=== PATIENT | male | born 1980 ===

== ENCOUNTER 2017-06-05 08:45 | Emergency (ER) | payer MEDICARE ==
[2017-06-05 08:54] VITALS: BMI 19.3
[2017-06-05 09:06] VITALS: BP 127/71; PULSE 79; RESP 18; TEMP 98; O2SAT 98
--- NOTE | 2017-06-05 09:09 | ED PDOC ---
Arrival/HPI - General Chief Complaint: Cough, Cold, Congestion Time Seen by Provider: 06/05/17 08:49 Historian: Patient - History of Present Illness Narrative History of Present Illness (Text): 06/05/17 09:04 A 36 year old male, whose past medical history includes HIV positive with t- cell count of 900 and undetected viral load, presents to the emergency department complaining of a cough for 2 weeks. Patient reports pain to left posterior ribs when coughing. He notes mild URI symptoms but denies any fever, chills, chest pain, shortness of breath, dyspnea on exertion or any other complaints. Patient notes his symptoms began shortly after starting his new job at [employer]. Time/Duration: Other (2 weeks) Symptom Course: Unchanged Quality: Other Context: Home Past Medical History - Provider Review Nursing Documentation Reviewed: Yes - Infectious Disease Hx of Infectious Diseases: None - Hematological/Oncological Hx AIDS: Yes - Psychiatric Hx Substance Use: No Family/Social History - Physician Review Nursing Documentation Reviewed: Yes Family/Social History: No Known Family HX Smoking Status: Heavy Smoker > 10 Cigarettes Daily Hx Alcohol Use: No Hx Substance Use: Yes Substance used: marijuana Allergies/Home Meds Allergies/Adverse Reactions: Allergies No Known Allergies Allergy (Verified 06/05/17 08:54) Review of Systems - Physician Review All systems were reviewed & negative as marked: Yes - Review of Systems Constitutional: absent: Fevers, Night Sweats Respiratory: Cough. absent: SOB Cardiovascular: absent: Chest Pain, [place] Musculoskeletal: Other (left posterior rib pain when coughing) Physical Exam Vital Signs Reviewed: Yes Vital Signs Temp Pulse Resp BP Pulse Ox 06/05/17 08:46 98 F 79 18 127/71 98 Temperature: Afebrile Blood Pressure: Normal Pulse: Regular Respiratory Rate: Normal Appearance: Positive for: Ill-Appearing, Cachectic, Other (Thin) Pain Distress: None Mental Status: Positive for: Alert and Oriented X 3 - Systems Exam Head: Present: Atraumatic, Normocephalic Pupils: Present: PERRL Extroacular Muscles: Present: EOMI Conjunctiva: Present: Normal Ears: Present: Normal, NORMAL TM, Normal Canal. No: Erythema, TM Bulging, Fluid , TM Perf Mouth: Present: Moist Mucous Membranes Pharnyx: Present: Normal. No: ERYTHEMA, EXUDATE Neck: Present: Normal Range of Motion Respiratory/Chest: Present: Clear to Auscultation, Good Air Exchange. No: Respiratory Distress, Accessory Muscle Use Cardiovascular: Present: Regular Rate and Rhythm, Normal S1, S2. No: Murmurs Abdomen: Present: Normal Bowel Sounds. No: Tenderness, Distention, Peritoneal Signs Back: Present: Normal Inspection Upper Extremity: Present: Normal Inspection. No: Cyanosis, Edema Lower Extremity: Present: Normal Inspection. No: Edema Neurological: Present: GCS=15, CN II-XII Intact, Speech Normal Skin: Present: Warm, Dry, Normal Color. No: Rashes Psychiatric: Present: Alert, Oriented x 3, Normal Insight, Normal Concentration Medical Decision Making ED Course and Treatment: 06/05/17 09:04 Impression: A 36 year old male with cough for 2 weeks. Patient notes left posterior rib pain when coughing. Plan: -- Chest xray -- Reassess and disposition Progress Notes: - RAD Interpretation Radiology Orders: 06/05/17 09:03 CHEST TWO VIEWS (PA/LAT) [RAD] Stat Chest 2 view shows no infiltrate effusion cardiomegaly or pneumothorax Autopsy Pathologist: ED Physician - Scribe Statement The provider has reviewed the documentation as recorded by the Claudia Driscoll Provider Scribe Attestation: All medical record entries made by the Scribe were at my direction and personally dictated by me. I have reviewed the chart and agree that the record accurately reflects my personal performance of the history, physical exam, medical decision making, and the department course for this patient. I have also personally directed, reviewed, and agree with the discharge instructions and disposition. Disposition/Present on Arrival - Present on Arrival Any Indicators Present on Arrival: No History of DVT/PE: No History of Uncontrolled Diabetes: No Urinary Catheter: No History of Decub. Ulcer: No History Surgical Site Infection Following: None - Disposition Have Diagnosis and Disposition been Completed?: Yes Diagnosis: Bronchitis Disposition: HOME/ ROUTINE Disposition Time: 09:41 Patient Plan: Discharge Condition: GOOD Discharge Instructions (ExitCare): Acute Bronchitis (ED) Additional Instructions: Symptomatic treatment. Tylenol or Advil as directed on bottle as needed. Follow- up with PMD. Follow up in ER as needed. Prescriptions: Amoxicillin [Amoxil 250 mg Cap] 250 mg PO TID #21 cap Benzonatate [Tessalon Perles] 100 mg PO Q8 #30 sgl Referrals: Angel Butterfield MD [Primary Care Provider] - Follow up with primary Forms: [employer] (Arabic), WORK NOTE
--- NOTE | 2017-06-05 14:15 | RAD ---
HISTORY: cough COMPARISON: No prior. TECHNIQUE: Chest PA and lateral FINDINGS: LUNGS: No active pulmonary disease. PLEURA: No significant pleural effusion identified. No pneumothorax apparent. CARDIOVASCULAR: Normal. OSSEOUS STRUCTURES: No significant abnormalities. VISUALIZED UPPER ABDOMEN: Normal. OTHER FINDINGS: None. IMPRESSION: No active disease.
== END 2017-06-05 09:57 | disposition home or self-care (01) ==
LOC: ED 08:45
DX: J40 Bronchitis, not specified as acute or chronic (principal); F17.210 Nicotine dependence, cigarettes, uncomplicated; Z21 Asymptomatic human immunodeficiency virus [HIV] infection status

== ENCOUNTER 2018-01-27 08:44 | Emergency (ER) | payer MEDICARE ==
[2018-01-27 08:45] VITALS: BMI 19.3
[2018-01-27 09:02] VITALS: RESP 18; TEMP 98; O2SAT 100
--- NOTE | 2018-01-27 09:24 | ED PDOC ---
Arrival/HPI - General Chief Complaint: Back Pain Time Seen by Provider: 01/27/18 09:04 Historian: Patient - History of Present Illness Narrative History of Present Illness (Text): 01/27/18 09:20 37yo male with pmhx of HIV, with T cell undetectable and Viral load of 800 who present with complaint of lower back pain x one month. Notes that pain is usually after extended period of laying down or sitting down. States he have not seen a Doctor for the pain and don't take any analgesic for the pain. He reports that the pain intermittent radiates down the right lower leg with numbness. He denies trauma, fall, urinary/fecal incontinence, focal weakness, abdominal pain, urinary symptoms, fever, chills, any other complaint. Past Medical History - Provider Review Nursing Documentation Reviewed: Yes - Infectious Disease Hx of Infectious Diseases: None - Hematological/Oncological Hx AIDS: Yes - Psychiatric Hx Substance Use: No Family/Social History - Physician Review Nursing Documentation Reviewed: Yes Family/Social History: Unknown Family HX Smoking Status: Light Smoker < 10 Cigarettes Daily Hx Alcohol Use: Yes Hx Substance Use: No Substance used: marijuana Allergies/Home Meds Allergies/Adverse Reactions: Allergies No Known Allergies Allergy (Verified 07/12/16 12:27) Home Medications: Home Meds Medication Instructions Recorded Confirmed Multivit,Iron,Min 5/Folic Acid 1 each PO 01/27/18 [Strovite Forte Caplet] Review of Systems - Physician Review All systems were reviewed & negative as marked: Yes - Review of Systems Constitutional: Normal Eyes: Normal ENT: Normal Respiratory: Normal Cardiovascular: Normal Gastrointestinal: Normal Genitourinary Male: Normal Musculoskeletal: Back Pain Skin: Normal Neurological: Normal Endocrine: Normal Hemo/Lymphatic: Normal Psychiatric: Normal Physical Exam Vital Signs Reviewed: Yes Vital Signs Temp Pulse Resp BP Pulse Ox 01/27/18 10:50 72 18 126/74 100 01/27/18 09:01 98 F 90 18 132/86 100 Temperature: Afebrile Blood Pressure: Normal Pulse: Regular Respiratory Rate: Normal Appearance: Positive for: Well-Appearing, Non-Toxic, Comfortable Pain Distress: None Mental Status: Positive for: Alert and Oriented X 3 - Systems Exam Head: Present: Atraumatic, Normocephalic Pupils: Present: PERRL Extroacular Muscles: Present: EOMI Conjunctiva: Present: Normal Mouth: Present: Moist Mucous Membranes Neck: Present: Normal Range of Motion Respiratory/Chest: Present: Clear to Auscultation, Good Air Exchange. No: Respiratory Distress, Accessory Muscle Use Cardiovascular: Present: Regular Rate and Rhythm, Normal S1, S2. No: Murmurs Abdomen: No: Tenderness, Distention, Peritoneal Signs Back: Present: Paraspinal Tenderness (Paralumbar tenderness b/l). No: Midline Tenderness, Pain with Leg Raise Upper Extremity: Present: Normal Inspection. No: Cyanosis, Edema Lower Extremity: Present: Normal Inspection. No: Edema Neurological: Present: GCS=15, CN II-XII Intact, Speech Normal Skin: Present: Warm, Dry, Normal Color. No: Rashes Psychiatric: Present: Alert, Oriented x 3, Normal Insight, Normal Concentration Medical Decision Making ED Course and Treatment: 01/27/18 19:59 Pt's back pain was controlled with medication in ED. Pain has been intermittent for weeks. He was ambulatory and NVI. LS xray - No acute finding Result was DW the pt. He was DC home with Naprosyn and flexeril. Referred to ortho - RAD Interpretation Radiology Orders: 01/27/18 09:09 LS SPINE WITH OBL > 18 YRS OLD [RAD] Stat - Medication Orders Current Medication Orders: Discontinued Medications Cyclobenzaprine HCl (Flexeril) 10 mg PO STAT STA Stop: 01/27/18 09:11 Last Admin: 01/27/18 09:19 Dose: 10 mg Ketorolac Tromethamine (Toradol) 60 mg IM STAT STA Stop: 01/27/18 09:10 Last Admin: 01/27/18 09:19 Dose: 60 mg MAR Pain Assessment Document 01/27/18 09:19 ROSA (Rec: 01/27/18 09:19 [id number]) Pain Reassessment Is this a pain reassessment? Yes Presence of Pain Presence of Pain Yes Pain Scale Used Pain Scale Used Numeric Location Upper or Lower Lower Pain Location Body Site Back Description Description Sharp Intensity of Pain at present 7 IM Administration Charges Document 01/27/18 09:19 ROSA (Rec: 01/27/18 09:19 [id number]) Injection Site MAR Injection Site Left Deltoid Charges for Administration # of IM Administrations 1 Disposition/Present on Arrival - Present on Arrival Any Indicators Present on Arrival: No History of DVT/PE: No History of Uncontrolled Diabetes: No Urinary Catheter: No History of Decub. Ulcer: No History Surgical Site Infection Following: None - Disposition Have Diagnosis and Disposition been Completed?: Yes Diagnosis: Back pain Disposition: HOME/ ROUTINE Disposition Time: 10:35 Patient Plan: Discharge Condition: STABLE Discharge Instructions (ExitCare): Low Back Pain (DC) Additional Instructions: Follow up with your Doctor/orthopedist Return to ED for any new or worsening symptoms Prescriptions: Cyclobenzaprine [Cyclobenzaprine HCl] 10 mg PO BID #10 tab Naproxen [Naprosyn] 500 mg PO BID #20 tablet Referrals: Bharath Hernandez DO [Staff Provider] - Follow up with primary Mamie Snowden MD [Staff Provider] - Follow up with primary Forms: [facility] ([place])
--- NOTE | 2018-01-27 10:24 | RAD ---
Date of service: 01/27/2018 PROCEDURE: Radiographs of the Lumbar Spine. HISTORY: Back pain COMPARISON: No prior. FINDINGS: BONES: There is mild levocurvature in the lumbar spine. There is normal alignment of the lumbar vertebral bodies. There is normal lumbar lordosis. There is no acute fracture, spondylolysis or spondylolisthesis. Bone mineralization is normal. DISC SPACES: The disc heights are maintained. OTHER FINDINGS: None. IMPRESSION: No acute fracture, spondylolysis or spondylolisthesis.
[2018-01-27 10:51] VITALS: BP 126/74; PULSE 72
== END 2018-01-27 10:51 | disposition home or self-care (01) ==
LOC: ED 08:44
DX: M54.5 Low back pain (principal); F17.210 Nicotine dependence, cigarettes, uncomplicated; Z21 Asymptomatic human immunodeficiency virus [HIV] infection status
CPT/HCPCS: 72110; 96372; 99283; J1885

== ENCOUNTER 2018-03-26 08:55 | Emergency (ER) | payer MEDICARE ==
[2018-03-26 09:36] VITALS: BMI 18.3
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
[2018-03-26 09:47] VITALS: RESP 18
[2018-03-26 10:34] VITALS: TEMP 98; O2SAT 98
[2018-03-26 11:29] VITALS: BP 118/76; PULSE 76
== END 2018-03-26 10:50 | disposition home or self-care (01) ==
LOC: ED 08:55
DX: M54.9 Dorsalgia, unspecified (principal)
CPT/HCPCS: 96372; 99282; J1885

== ENCOUNTER 2018-11-07 14:26 | Emergency (ER) | payer MEDICARE ==
[2018-11-07 14:26] VITALS: BMI 18.3
[2018-11-07 14:42] VITALS: RESP 18
--- NOTE | 2018-11-07 15:11 | ED PDOC ---
Arrival/HPI - General Chief Complaint: Cough, Cold, Congestion Historian: Patient - History of Present Illness Narrative History of Present Illness (Text): 11/07/18 15:08 37 y/o male, pmh including HIV?/bronchitis, nkda, c/o cough on and off x 1 month. Dry cough, on and off, no weightloss or hemopytsis, stated that he has lt. sided chest pain from coughing excessively, no numbness or tingling, no fever or chills, no rash, no palpitation, no numbness or tingling, no other medical or psychological complaints. Past Medical History - Provider Review Nursing Documentation Reviewed: Yes - Infectious Disease Hx of Infectious Diseases: None - Cardiac Hx Cardiac Disorders: No - Pulmonary Hx Respiratory Disorders: Yes Hx Bronchitis: Yes - Neurological Hx Neurological Disorder: No Hx Seizures: Yes (as a child stopped at age 5) Other/Comment: tingling - HEENT Hx HEENT Disorder: No - Renal Hx Renal Disorder: No - Endocrine/Metabolic Hx Endocrine Disorders: No - Hematological/Oncological Hx AIDS: Yes Hx Blood Transfusions: No - Integumentary Hx Dermatological Disorder: No - Musculoskeletal/Rheumatological Hx Musculoskeletal Disorders: No Hx Arthritis: Yes Hx Back Pain: Yes - Gastrointestinal Hx Gastrointestinal Disorders: No - Genitourinary/Gynecological Hx Genitourinary Disorders: No - Psychiatric Hx Emotional Abuse: No Hx Physical Abuse: No Hx Substance Use: Yes - Surgical History Hx Eye Surgery: Yes (left) Other/Comment: wisdom teeth extraction - Anesthesia Hx Anesthesia: Yes Hx Anesthesia Reactions: No Hx Malignant Hyperthermia: No - Suicidal Assessment Feels Threatened In Home Enviroment: No Family/Social History - Physician Review Nursing Documentation Reviewed: Yes Family/Social History: Unknown Family HX Smoking Status: Heavy Smoker > 10 Cigarettes Daily Hx Alcohol Use: Yes Hx Substance Use: Yes Substance used: marijuana Allergies/Home Meds Allergies/Adverse Reactions: Allergies No Known Allergies Allergy (Verified 07/26/18 10:19) Home Medications: Home Meds Medication Instructions Recorded Confirmed Elviteg/Melba/Emtric/Tenofo Dis 1 tab PO DAILY 07/26/18 11/07/18 [Stribild] Gabapentin [Neurontin] 300 mg PO Q8 07/26/18 11/07/18 Meloxicam [Mobic] 15 mg PO DAILY 07/26/18 11/07/18 Mirtazapine 30 mg PO HS 07/26/18 11/07/18 Quetiapine Fumarate [Seroquel] 25 mg PO DAILY 07/26/18 11/07/18 Tiotropium [Spiriva] 18 mcg IH DAILY 07/26/18 11/07/18 Review of Systems - Review of Systems Constitutional: absent: Fatigue, Fevers Eyes: absent: Vision Changes ENT: absent: Hearing Changes Respiratory: Cough. absent: SOB, Sputum Cardiovascular: Chest Pain Gastrointestinal: absent: Abdominal Pain, Diarrhea, Nausea, Vomiting Genitourinary Male: absent: Dysuria Musculoskeletal: absent: Arthralgias, Back Pain Skin: absent: Rash, Pruritis Neurological: absent: Headache Psychiatric: absent: Anxiety, Depression, Suicidal Ideation Physical Exam Vital Signs Reviewed: Yes Vital Signs Temp Pulse Resp BP Pulse Ox 11/07/18 14:38 98.7 F 102 H 18 117/88 98 Temperature: Afebrile Blood Pressure: Normal Pulse: Tachycardic Respiratory Rate: Normal Appearance: Positive for: Well-Appearing, Non-Toxic, Comfortable Pain Distress: Moderate Mental Status: Positive for: Alert and Oriented X 3 - Systems Exam Head: Present: Atraumatic, Normocephalic Pupils: Present: PERRL Extroacular Muscles: Present: EOMI Conjunctiva: Present: Normal Mouth: Present: Moist Mucous Membranes Neck: Present: Normal Range of Motion Respiratory/Chest: Present: Clear to Auscultation, Good Air Exchange. No: Respiratory Distress, Accessory Muscle Use, Wheezes, Decreased Breath Sounds, Rales, Retracting, Rhonchi, Tachypneic, Tender to Palpation Cardiovascular: Present: Regular Rate and Rhythm, Normal S1, S2, Tachycardic. No: Murmurs Abdomen: No: Tenderness, Distention, Peritoneal Signs, Rebound, Guarding Back: Present: Normal Inspection. No: CVA Tenderness, Midline Tenderness, Paraspinal Tenderness, Pain with Leg Raise, Decubitus Ulcer Upper Extremity: Present: Normal Inspection. No: Cyanosis, Edema Lower Extremity: Present: Normal Inspection. No: Edema Neurological: Present: GCS=15, CN II-XII Intact, Speech Normal, Motor Func Grossly Intact, Normal Cerebellar Funct, Gait Normal, Memory Normal Skin: Present: Warm, Dry, Normal Color. No: Rashes Psychiatric: Present: Alert, Oriented x 3, Normal Insight, Normal Concentration Medical Decision Making ED Course and Treatment: 11/07/18 15:10 -labs -chest xray -IVF/toradol -Observe and reassess 11/07/18 17:18 -Chest xray No active pulmonary disease. COPD. -Labs show no acute findings -Trop after 24 hours is negative -Dimer is negative -BNP is negative -HEART score is low -Pt. is asyptomatic now after the IVF/toradol. -Discharge home with zithromax, prednisone, albuterol MDI, bromfed dm, stay hydrated, no gym or exercise until clear by the dental aide, see your own pmd and ground source heat pump technician/dental aide within 2 days, return to the ER for any new or worsening signs - RAD Interpretation Radiology Orders: 11/07/18 15:07 CHEST PORTABLE [RAD] Stat Date of service: 11/07/2018 HISTORY: cough x 1 month COMPARISON: 06/05/2017 FINDINGS: LUNGS: The lungs are hyperinflated and there is peribronchial thickening with chronic changes in both lungs. No focal consolidation. PLEURA: No pleural effusions or pneumothorax. CARDIOVASCULAR: The heart is normal in size. No aortic atherosclerotic calcifications present. OSSEOUS STRUCTURES: Within normal limits for the patient's age. VISUALIZED UPPER ABDOMEN: Normal. OTHER FINDINGS: None. IMPRESSION: No active pulmonary disease. COPD. Visual Merchandising Associate: Radiologist - PA / GROCERY STOCK CLERK / Resident Statement MD/DO has reviewed & agrees with the documentation as recorded. Disposition/Present on Arrival - Present on Arrival Any Indicators Present on Arrival: No History of DVT/PE: No History of Uncontrolled Diabetes: No Urinary Catheter: No History of Decub. Ulcer: No History Surgical Site Infection Following: None - Disposition Have Diagnosis and Disposition been Completed?: Yes Diagnosis: Bronchitis, Atypical chest pain Disposition: HOME/ ROUTINE Disposition Time: 17:21 Patient Plan: Discharge Condition: IMPROVED Discharge Instructions (ExitCare): Chest Pain (ED) Additional Instructions: -Discharge home with zithromax, prednisone, albuterol MDI, bromfed dm, stay hydrated, no gym or exercise until clear by the dental aide, see your own pmd and ground source heat pump technician/dental aide within 2 days, return to the ER for any new or worsening signs Prescriptions: Albuterol HFA [Ventolin HFA 90 mcg/actuation (8 g)] 2 puff IH [id number] PRN #1 inh PRN Reason: Other Azithromycin [Zithromax] 250 mg PO DAILY #6 tab Brompheniramine/Pseudoephed/Dm [Bromfed Dm Cough 118 ml] 10 ml PO QID PRN #250 ml PRN Reason: Other Prednisone 50 mg PO DAILY #5 tab Referrals: Kyleigh Zavala MD [Staff Provider] - Follow up with primary Kyleigh Carr MD [Staff Provider] - Follow up with primary [facility] [Outside] - Follow up with primary Forms: [employer] [facility] ([place]z), WORK NOTE
[2018-11-07 15:42] LABS: BASO # 0.06 K/mm3 (0.0-2.0); BASO % 0.6 % (0.0-3.0); EOS # 0.4 (0.0-0.7); EOS % 3.7 % (1.5-5.0); HEMOGLOBIN 14.4 g/dL (14.0-18.0); LYMPH # 1.9 (1.2-3.4); LYMPH % 20.1 % (22.0-35.0); MEAN CELL VOLUME 92.2 fl (80.0-105.0); MEAN CORPUSCULAR HEMOGLOBIN 31.1 pg (25.0-35.0); MEAN CORPUSCULAR HGB CONC 33.7 g/dl (31.0-37.0); MEAN PLATELET VOLUME 8.6 fl (7.0-11.0); MONO # 0.4 (0.1-0.6); MONO % 4.5 % (1.0-6.0); RBC 4.63 10^6/uL (3.5-6.1); RED CELL DISTRIBUTION WIDTH 13.9 % (11.5-14.5); WHITE BLOOD COUNT 9.5 10^3/uL (4.5-11.0)
--- NOTE | 2018-11-07 16:05 | RAD ---
Date of service: 11/07/2018 HISTORY: cough x 1 month COMPARISON: 06/05/2017 FINDINGS: LUNGS: The lungs are hyperinflated and there is peribronchial thickening with chronic changes in both lungs. No focal consolidation. PLEURA: No pleural effusions or pneumothorax. CARDIOVASCULAR: The heart is normal in size. No aortic atherosclerotic calcifications present. OSSEOUS STRUCTURES: Within normal limits for the patient's age. VISUALIZED UPPER ABDOMEN: Normal. OTHER FINDINGS: None. IMPRESSION: No active pulmonary disease. COPD.
[2018-11-07 16:15] LABS: PH,URINE 6.5 (4.7-8.0); URINE APPEARANCE CLEAR (CLEAR); URINE BILIRUBIN NEGATIVE (NEGATIVE); URINE BLOOD SMALL (NEGATIVE); URINE COLOR YELLOW (YELLOW); URINE GLUCOSE (UA) NEGATIVE (NEGATIVE); URINE LEUKOCYTE ESTERASE NEGATIVE Leu/uL (NEGATIVE); URINE PROTEIN NEGATIVE mg/dL (<30 mg/dL); URINE UROBILINOGEN 0.2 E.U./dL (<1 E.U./dL)
[2018-11-07 16:26] LABS: URINE RBC 0 - 2 /hpf (0-2)
[2018-11-07 16:28] LABS: BLOOD UREA NITROGEN 6 mg/dL (7-21); GFR NON-AFRICAN AMERICAN > 60
[2018-11-07 16:29] LABS: ALB/GLOB RATIO 1.4 (1.1-1.8); ALBUMIN 4.2 g/dL (3.0-4.8); ALT/SGPT 15 U/L (7-56); AST/SGOT 33 U/L (17-59)
[2018-11-07 16:30] LABS: TROPONIN I < 0.01 ng/mL
[2018-11-07 16:49] LABS: B-TYPE NATRIURETIC PEPTIDE 56.1 pg/mL (0-450)
[2018-11-07 17:51] VITALS: BP 121/71; PULSE 81; TEMP 98.5; O2SAT 98
== END 2018-11-07 17:46 | disposition home or self-care (01) ==
LOC: ED 14:26
DX: R07.89 Other chest pain (principal); J40 Bronchitis, not specified as acute or chronic; F17.210 Nicotine dependence, cigarettes, uncomplicated; Z21 Asymptomatic human immunodeficiency virus [HIV] infection status
CPT/HCPCS: 71045; 80053; 81001; 83880; 84484; 85025; 85378; 96374; 99283; J1885